=== PATIENT | male | born 1960 | race Caucasian/White ===

== ENCOUNTER 2024-09-17 16:43 | Emergency (ER) | payer MEDICAID, SELFPAY ==
[2024-09-17] VITALS (15 sets, daily range): BP systolic 94–138; BP diastolic 60–74; PULSE 29–91; RESP 15–29; TEMP 36.1–36.4; O2SAT 93–99
--- NOTE | 2024-09-17 16:47 | EKG12_ITS ---
Test Reason : REPEAT Blood Pressure : */* mmHG Vent. Rate : 91 BPM Atrial Rate : 78 BPM P-R Int : 210 ms QRS Dur : 76 ms QT Int : 394 ms P-R-T Axes : 18 14 58 degrees QTcB Int : 484 ms Sinus rhythm with 1st degree A-V block with frequent and consecutive Premature ventricular complexes Cannot rule out Anterior infarct , age undetermined QTcB >= 480 msec Abnormal ECG Confirmed by MARK SHANNON ([id number]), pictures editor SHLOMO COVINGTON ([id number]) on 09/21/2024 8:22:19 AM Referred By: Confirmed By: MARK SHANNON
--- NOTE | 2024-09-17 16:49 | EKG12_ITS ---
Test Reason : CP Blood Pressure : */* mmHG Vent. Rate : 92 BPM Atrial Rate : 92 BPM P-R Int : 186 ms QRS Dur : 82 ms QT Int : 390 ms P-R-T Axes : 66 -12 73 degrees QTcB Int : 482 ms Critical Test Result: Arrhythmia Sinus rhythm with frequent and consecutive Premature ventricular complexes Inferior infarct , age undetermined QTcB >= 480 msec Abnormal ECG Confirmed by MARK SHANNON ([id number]), editorial intern SHLOMO COVINGTON ([id number]) on 09/21/2024 8:22:13 AM Referred By: EDGAR/VERNON Confirmed By: MARK SHANNON
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
--- NOTE | 2024-09-17 17:11 | RAD_ITS ---
PROCEDURE: CHEST 1 VIEW (PORTABLE) 09/17/2024 REASON FOR EXAM: CHEST PAIN TECHNIQUE: Frontal view of the chest. COMPARISON: None. FINDINGS: Lungs/Pleura: Clear. No pneumothorax or sizable pleural effusion. Heart/Mediastinum: Mildly enlarged. Prior sternotomy, with epicardial cardiac leads. Probable cardiac loop recorder device projects over the paramedian left chest wall. Bones/Soft tissues: Degenerative changes of the spine and bilateral AC joints. RAD/Chest 1 View (Portable) IMPRESSION: Cardiomegaly. No acute pulmonary disease. Reading Location: [id number]
[2024-09-17 17:33] LABS: Hematocrit 55.4 % (40-54); Immature Granulocytes Count 0.040 X10^3/uL (0.0-0.0); Mean Corp Hgb Conc 33.6 g/dL (32-36); Mean Corpuscular Volume 94.2 fL (80-94); Mean Platelet Vol. 9.3 fl (6.2-12.0); NRBC Flagged by Analyzer 0 % (0-5); Platelet Count 258 K/mm3 (150-450); RBC Distribution Width CV 13.3 % (11.6-14.6); RBC Distribution Width SD 46.8 fl (35.1-43.9); Red Blood Count 5.88 M/mm3 (4.6-6.2); White Blood Count 10.2 K/mm3 (4.4-11.0)
[2024-09-17 17:40] LABS: Anion Gap 10 (5-15); BUN 30 mg/dL (4-19); BUN/Creat Ratio 22.3 RATIO (10-20); Calcium,Total 9.0 mg/dL (7.6-11.0); Carbon Dioxide 25.1 mmol/L (21.0-32.0); Chloride 106 mmol/L (98-108); Glucose 90 mg/dL (70-99); Potassium 4.7 mmol/L (3.3-5.1); Troponin T High Sensitivity 25 ng/L (<=22)
[2024-09-17 17:46] LABS: Hemoglobin 18.6 g/dL (13.0-16.5)
[2024-09-17 19:51] LABS: Troponin T High Sens 2 HR 19 ng/L (<=22)
[2024-09-17 21:46] LABS: Troponin T High Sens 4 HR 20 ng/L (<=22)
== END 2024-09-17 22:57 | disposition home or self-care (01) ==
PROVIDERS: Emergency Provider Emergency Medicine; PCP Family Medicine; Visit Provider Emergency Medicine
DX: T75.4XXA Electrocution, initial encounter (principal); R07.89 Other chest pain; I10 Essential (primary) hypertension; I49.3 Ventricular premature depolarization; Z95.2 Presence of prosthetic heart valve; W86.8XXA Exposure to other electric current, initial encounter
CPT/HCPCS: 71045; 80048; 84484; 85025; 93005; 99284; A4216